=== PATIENT | male | born 1960 | race Asian ===

== ENCOUNTER 2020-05-16 07:19 | Inpatient (IN) | payer MEDICARE, OTHER ==
[~2020-05-16] VITALS: Ht 172.7 cm; Wt 67.2 kg
[~2020-05-16 07:19] MED LIST: ATOR80TA PO; ETOMIDATE 2 MG/ML 10 ML VIAL IV ONE; OMEP20CA4; VECURONIUM BROMIDE 10 MG/VIAL IV ONE
[2020-05-16] MEDS ORDERED: NITROGLYCERIN 50 MG/D5% WATER 250 ML IV PRN (07:49)
[2020-05-16] MEDS ORDERED: FUROSEMIDE 40 MG/4 ML VIAL IVP ONE (08:00)
[2020-05-16] MEDS ORDERED: ACETAMINOPHEN 500 MG TABLET PO ONE (08:00)
[2020-05-16 08:06] LABS: ABG A-A DIFF O2 557.3 mmHg (10-20.0); ABG BASE EXCESS -10.9 mmol/L (-2.0-3.0); ABG CARBOXYHEMOGLOBIN 2.4 % (0.0-1.5); ABG HCO3 15.7 mmol/L (22.0-26.0); ABG METHEMOGLOBIN 0.2 % (0.0-1.5); ABG OXYGEN CONTENT 26.6 mL/dL (15.0-23.0); ABG OXYGEN SATURATION 94.7 % (95.0-98.0); ABG OXYHEMOGLOBIN 92.2 % (94.0-100.0); ABG PCO2 58 mmHg (35-45); PO2, ARTERIAL BG 95.3 mmHg (84.0-92.0); SOURCE, BLOOD GAS ARTERIAL; TEMPERATURE, FAHRENHEIT, BG 100.2 FAHREN (96.0-98.6)
[2020-05-16] MEDS ORDERED: ACETAMINOPHEN 1000 MG/ISO-OSM 100 ML IV ONE (08:15)
[2020-05-16 08:28] LABS: BASOPHILS % (AUTO) 1.4 % (0.0-2.0); EOSINOPHILS % (AUTO) 3.9 % (1.0-6.0); HEMOGLOBIN 18.3 g/dL (13.5-17.5); LYMPHOCYTES # (AUTO) 5.7 K/uL (1.0-4.8); LYMPHOCYTES % (AUTO) 56.3 % (22.0-44.0); MEAN CORPUSCULAR HEMOGLOBIN 32.4 pg (26.0-34.0); MEAN CORPUSCULAR HGB CONC 32.7 G/dL (31.0-37.0); MEAN CORPUSCULAR VOLUME 99 fL (80-100); MONOCYTES # (AUTO) 0.6 K/uL (0.1-1.0); MONOCYTES % (AUTO) 6.4 % (2.0-9.0); NEUTROPHILS # (AUTO) 3.3 K/uL (1.8-7.7); PLATELET COUNT (AUTO) 265 K/uL (150-450); RED BLOOD CELL COUNT(AUTO) 5.65 MIL/uL (4.50-5.90); RED CELL DISTRIBUTION WIDTH 14.1 % (11.5-14.5)
[2020-05-16 08:32] LABS: ANION GAP 14 mmol/L (8-16); CALCIUM, TOTAL 8.9 mg/dL (8.8-10.5); CARBON DIOXIDE 21 mmol/L (22-29); CHLORIDE 102 mmol/L (98-107); CREATININE 1.43 mg/dL (0.60-1.30); GLOMERULAR FILTR. RATE CALC 51 mL/min (>60); GLUCOSE,RANDOM 323 mg/dL (70-110); POTASSIUM 4.2 mmol/L (3.5-5.1); SODIUM SERUM 137 mmol/L (136-145); UREA NITROGEN, BLOOD 11 mg/dL (7-18)
[2020-05-16 08:35] LABS: HEMATOCRIT 54.9 % (41-53)
[2020-05-16 08:52] LABS: PROTHROMBIN TIME 10.3 SEC (9.4-11.6)
[2020-05-16 08:58] LABS: ALANINE AMINOTRANSFERASE 34 U/L (12-78); ALKALINE PHOSPHATASE 144 U/L (46-116); ASPARTATE AMINOTRANSFERASE 36 U/L (15-37); B-TYPE NATRIURETIC PEPTIDE 342 pg/mL (0-100); BILIRUBIN,TOTAL 0.4 mg/dL (0.1-1.0); CREATINE KINASE, TOTAL ONLY 115 U/L (39-308); TOTAL PROTEIN, SERUM 8.8 g/dL (6.4-8.2)
[2020-05-16 09:06] LABS: ABG TOTAL HEMOGLOBIN 20.5 G/dL (12.0-18.0); SITE, BLOOD GAS LFT RADIAL
[2020-05-16 09:07] LABS: INSPIRATORY TIME, BG 0.9 SEC; SPONTANEOUS VT, BG 672 ml
[2020-05-16 09:07] LABS: LACTIC ACID 2.8 mmol/L (0.4-2.0)
[2020-05-16] MEDS ORDERED: CefTRIAXone 1 GM/DEXTROSE 50 ML IV ONE (09:15)
[2020-05-16] MEDS ORDERED: AZITHROMYCIN 500 MG/NS 250 ML IV ONE (09:15)
[2020-05-16 09:16] LABS: APPEARANCE,URINE CLOUDY (CLEAR); BILIRUBIN,URINE NEGATIVE (NEGATIVE); GLUCOSE, URINE (UA) 500 mg/dL (NEGATIVE); KETONES,URINE NEGATIVE (NEGATIVE); LEUKOCYTE ESTERASE ,URINE NEGATIVE (NEGATIVE); NITRATE,URINE NEGATIVE (NEGATIVE); OCCULT BLOOD,URINE SMALL (NEGATIVE); PROTEIN,URINE SEE CONFIRM (NEGATIVE); UROBILINOGEN,URINE 0.2 mg/dL (<=1.0)
[2020-05-16 09:28] LABS: BACTERIA,URINE Moderate /HPF (None Seen); SULFOSALICYLIC ACID,URINE 3+ (Negative); WBC,URINE 0-2 /HPF (0-5)
[2020-05-16 09:29] LABS: AMORPHOUS SEDIMENT,UR Moderate /LPF (None Seen)
[2020-05-16 09:44] LABS: ABG A-A DIFF O2 335.3 mmHg (10-20.0); ABG BASE EXCESS -8.3 mmol/L (-2.0-3.0); ABG CARBOXYHEMOGLOBIN 0.4 % (0.0-1.5); ABG HCO3 18.6 mmol/L (22.0-26.0); ABG METHEMOGLOBIN 0.7 % (0.0-1.5); ABG OXYGEN CONTENT 27.6 mL/dL (15.0-23.0); ABG OXYGEN SATURATION 99.5 % (95.0-98.0); ABG OXYHEMOGLOBIN 98.4 % (94.0-100.0); ABG PCO2 41 mmHg (35-45); ABG PH 7.272 (7.35-7.450); ABG TOTAL HEMOGLOBIN 19.4 G/dL (12.0-18.0); PO2, ARTERIAL BG 333.3 mmHg (84.0-92.0); SOURCE, BLOOD GAS ARTERIAL; TEMPERATURE, FAHRENHEIT, BG 100.8 FAHREN (96.0-98.6)
[2020-05-16 10:19] LABS: O2 DEVICE,BLOOD GAS BIPAP (ROOM AIR); SITE, BLOOD GAS LFT RADIAL
[2020-05-16 10:21] LABS: INSPIRATORY TIME, BG 0.9 SEC; SPONTANEOUS VT, BG 792 ml
[2020-05-16 10:23] LABS: O2 DEVICE,BLOOD GAS BIPAP (ROOM AIR)
[2020-05-16] MEDS ORDERED: ACETAMINOPHEN 325 MG TABLET PO PRN (10:45)
[2020-05-16] MEDS ORDERED: ONDANSETRON HCL 4 MG/2 ML VIAL IVP PRN ×2 (10:45→16:15)
[2020-05-16] MEDS ORDERED: VECURONIUM BROMIDE 10 MG/VIAL ONE (11:06)
[2020-05-16] MEDS ORDERED: PROPOFOL 1000 MG/ISO-OSM 100 ML IV ONE (11:18)
[2020-05-16] MEDS ORDERED: PROPOFOL 1000 MG/ISO-OSM 100 ML IV PRN (12:00)
[2020-05-16 12:08] LABS: ABG A-A DIFF O2 544.8 mmHg (10-20.0); ABG BASE EXCESS -15.5 mmol/L (-2.0-3.0); ABG CARBOXYHEMOGLOBIN 0.3 % (0.0-1.5); ABG METHEMOGLOBIN 0.6 % (0.0-1.5); ABG OXYGEN CONTENT 26.8 mL/dL (15.0-23.0); ABG OXYGEN SATURATION 94.7 % (95.0-98.0); ABG OXYHEMOGLOBIN 93.8 % (94.0-100.0); ABG PCO2 59 mmHg (35-45); PO2, ARTERIAL BG 105.2 mmHg (84.0-92.0); SOURCE, BLOOD GAS ARTERIAL; TEMPERATURE, FAHRENHEIT, BG 101.2 FAHREN (96.0-98.6)
[2020-05-16] MEDS ORDERED: HEPARIN SODIUM 25000 UNITS/D5W 250 ML IV PRN (12:28)
[2020-05-16] MEDS ORDERED: HEPARIN SODIUM,PORCINE 5,000 UNITS/ML VIAL IVP ONE (12:30)
[2020-05-16] MEDS ORDERED: ASPIRIN 325 MG TABLET PO ONE (12:30)
[2020-05-16] MEDS ORDERED: HEPARIN SODIUM,PORCINE 5,000 UNITS/ML VIAL IVP PRN ×2 (12:30)
[2020-05-16 12:41] LABS: ABG PH 7.031 (7.35-7.450); ABG TOTAL HEMOGLOBIN 20.3 G/dL (12.0-18.0); O2 DEVICE,BLOOD GAS VENTILATOR (ROOM AIR); PEEP,BG 5 cm H2O; SITE, BLOOD GAS RT RADIAL; SPONTANEOUS VT, BG 420 ml; VT, ABG 425 ml
[2020-05-16] MEDS ORDERED: SODIUM BICARBONATE [ADULT] 8.4% 50 MEQ/50 ML SYRINGE IVP ONE (12:45)
[2020-05-16 12:53] LABS: BASOPHILS % (AUTO) 0.7 % (0.0-2.0); EOSINOPHILS % (AUTO) 0.3 % (1.0-6.0); HEMOGLOBIN 18.2 g/dL (13.5-17.5); LYMPHOCYTES # (AUTO) 1.5 K/uL (1.0-4.8); LYMPHOCYTES % (AUTO) 9.7 % (22.0-44.0); MEAN CORPUSCULAR HEMOGLOBIN 32.3 pg (26.0-34.0); MEAN CORPUSCULAR VOLUME 101 fL (80-100); MONOCYTES # (AUTO) 0.9 K/uL (0.1-1.0); MONOCYTES % (AUTO) 5.5 % (2.0-9.0); NEUTROPHILS # (AUTO) 13.3 K/uL (1.8-7.7); NEUTROPHILS % (AUTO) 83.8 % (40.0-70.0); PLATELET COUNT (AUTO) 203 K/uL (150-450); RED BLOOD CELL COUNT(AUTO) 5.63 MIL/uL (4.50-5.90); RED CELL DISTRIBUTION WIDTH 14.3 % (11.5-14.5)
[2020-05-16] MEDS ORDERED: CefTRIAXone 1 GM/DEXTROSE 50 ML IV SCH (13:00)
[2020-05-16] MEDS: METOPROLOL TARTRATE 5 MG/5 ML VIAL IVP SCH ×2 (13:00→18:00)
[2020-05-16] MEDS ORDERED: FentaNYL CITRATE PF 500 MCG in DEXTROSE 5%-WATER 90 ML IV PRN (13:23)
[2020-05-16] MEDS ORDERED: DOXYCYCLINE HYCLATE 100 MG in DEXTROSE 5%-WATER 100 ML IV SCH (14:00)
[2020-05-16 16:00] VITALS: BP 65/55
[2020-05-16] MEDS ORDERED: MORPHINE SULFATE 2 MG/ML SYRINGE IVP PRN (16:15)
[2020-05-16] MEDS ORDERED: MAGNESIUM HYDROXIDE SUSPENSION 30 ML UDCUP PO PRN (16:15)
[2020-05-16] MEDS ORDERED: ZOLPIDEM TARTRATE 5 MG TABLET PO PRN (16:15)
[2020-05-16] MEDS ORDERED: BISACODYL 10 MG RECTAL RECTAL SUPPOSITORY PR PRN (16:15)
[2020-05-16] MEDS ORDERED: HYDROCODONE/ACETAMINOPHEN 5-325 MG TABLET PO PRN (16:15)
[2020-05-16] MEDS ORDERED: NOREPINEPHRINE 4 MG/D5%-WATER 250 ML IV ONE (16:17)
[2020-05-16 16:26] LABS: ABG A-A DIFF O2 387.5 mmHg (10-20.0); ABG BASE EXCESS -7.7 mmol/L (-2.0-3.0); ABG HCO3 19.2 mmol/L (22.0-26.0); ABG OXYGEN CONTENT 26.1 mL/dL (15.0-23.0); ABG OXYGEN SATURATION 99.5 % (95.0-98.0); ABG OXYHEMOGLOBIN 98.5 % (94.0-100.0); ABG PCO2 37 mmHg (35-45); ABG PH 7.313 (7.35-7.450); ABG TOTAL HEMOGLOBIN 18.4 G/dL (12.0-18.0); PO2, ARTERIAL BG 285.4 mmHg (84.0-92.0); SOURCE, BLOOD GAS ARTERIAL; TEMPERATURE, FAHRENHEIT, BG 100.6 FAHREN (96.0-98.6)
[2020-05-16] MEDS ORDERED: DEXTROSE 50%-WATER 25 GM/50 ML SYRINGE IVP PRN (16:30)
[2020-05-16] MEDS ORDERED: INSULIN LISPRO 100 UNITS/ML SQ PRN (16:30)
[2020-05-16] MEDS ORDERED: MIDAZOLAM HCL 100 MG in DEXTROSE 5%-WATER 180 ML IV PRN (16:45)
[2020-05-16] MEDS ORDERED: VASOPRESSIN 40 UNITS in DEXTROSE 5%-WATER 98 ML IV PRN (16:45)
[2020-05-16] MEDS ORDERED: NOREPINEPHRINE 4 MG/D5%-WATER 250 ML IV PRN (16:45)
[2020-05-16 17:20] LABS: FERRITIN 137 ng/mL (26-388); LACTATE DEHYDROGENASE 945 U/L (85-227)
[2020-05-16 17:32] LABS: O2 DEVICE,BLOOD GAS VENTILATOR (ROOM AIR); SITE, BLOOD GAS LFT RADIAL; VT, ABG 425 ml
[2020-05-16 17:33] LABS: PEEP,BG 8 cm H2O; SPONTANEOUS VT, BG 419 ml
[2020-05-16] MEDS ORDERED: PHENYLEPHRINE 200 MG/D5%-WATER 250 ML IV PRN (17:45)
[2020-05-16] MEDS ORDERED: NOREPINEPHRINE BITARTRATE 16 MG in DEXTROSE 5%-WATER 234 ML IV PRN (17:45)
[2020-05-16] MEDS: ACETAMINOPHEN 325 MG TABLET PO PRN (19:19)
[2020-05-16 19:39] LABS: D-DIMER 3.26 mg/L FEU (0.00-0.50)
[2020-05-16] MEDS ORDERED: ZOLPIDEM TARTRATE 10 MG TABLET PO PRN (20:52)
[2020-05-16] MEDS ORDERED: DOCUSATE SODIUM 100 MG CAPSULE PO SCH (21:00)
[2020-05-16] MEDS ORDERED: BUMETANIDE 0.25 MG/ML 4 ML VIAL IVP STA (21:24)
[2020-05-16] MEDS ORDERED: CLOPIDOGREL BISULFATE 300 MG TABLET GT STA (21:24)
[2020-05-16] MEDS ORDERED: ATORVASTATIN CALCIUM 40 MG TABLET GT SCH (21:30)
[2020-05-16 22:01] LABS: LACTIC ACID 5.7 mmol/L (0.4-2.0)
[2020-05-17] VITALS: BP 144/102
[2020-05-17] MEDS: ACETAMINOPHEN 325 MG TABLET PO PRN (00:10)
[2020-05-17] MEDS ORDERED: DOPamine HCL 800 MG/D5%-WATER 250 ML IV PRN (00:15)
[2020-05-17] MEDS ORDERED: SODIUM CHLORIDE 0.9% 500 ML IV ONE (00:21)
[2020-05-17] MEDS ORDERED: EPINEPHrine 2 MG in DEXTROSE 5%-WATER 248 ML IV PRN (00:45)
[2020-05-17 01:41] VITALS: BP 136/87
[2020-05-17] MEDS ORDERED: ASPIRIN 81 MG CHEWABLE TABLET PO SCH (09:00)
[2020-05-17] MEDS ORDERED: FUROSEMIDE 20 MG/2 ML VIAL IVP ONE (09:00)
[2020-05-17] MEDS ORDERED: ASPIRIN 81 MG CHEWABLE TABLET NG SCH (09:00)
[2020-05-17] MEDS ORDERED: PANTOPRAZOLE SODIUM 40 MG DR TABLET PO SCH (09:00)
== END 2020-05-17 02:40 | disposition short-term general hospital (02) | DRG 871 ==
LOC: EMS 07:22 → EDBD 07:22 → ICU 14:08
PROVIDERS: ADMIT Internal Medicine; ATTEND Internal Medicine
PROC: 5A1935Z Respiratory Ventilation, Less than 24 Consecutive Hours (ICD-10-PCS; principal; 2020-05-16)
PROC: 5A09357 Assistance with Respiratory Ventilation, Less than 24 Consecutive Hours, Continuous Positive Airway Pressure (ICD-10-PCS; 2020-05-16)
PROC: 06HY33Z Insertion of Infusion Device into Lower Vein, Percutaneous Approach (ICD-10-PCS; 2020-05-16)
DX: A41.9 Sepsis, unspecified organism (principal); I21.4 Non-ST elevation (NSTEMI) myocardial infarction; I50.41 Acute combined systolic (congestive) and diastolic (congestive) heart failure; J96.01 Acute respiratory failure with hypoxia; E87.4 Mixed disorder of acid-base balance; I13.0 Hypertensive heart and chronic kidney disease with heart failure and stage 1 through stage 4 chronic kidney disease, or unspecified chronic kidney disease; I16.1 Hypertensive emergency; I42.9 Cardiomyopathy, unspecified; E78.5 Hyperlipidemia, unspecified; I25.10 Atherosclerotic heart disease of native coronary artery without angina pectoris; N18.9 Chronic kidney disease, unspecified; Z20.828 Contact with and (suspected) exposure to other viral communicable diseases; I95.9 Hypotension, unspecified; R10.13 Epigastric pain; I25.2 Old myocardial infarction; Z95.1 Presence of aortocoronary bypass graft; Z95.5 Presence of coronary angioplasty implant and graft; Z95.810 Presence of automatic (implantable) cardiac defibrillator
CPT/HCPCS: 36600; 51702; 82728; 82805; 83036; 83605; 83615; 85379; 87040; 87081; 87086; 93005; 93306; 94002; 94660; 99291; G0378; J0131; J0171; J0456; J0696; J1265; J1644; J1940; J2250; J2370; J2704; J3010; J3490; J7040; J7060; 36415-L1; 36415-TC; 71045-TC; U0003-CS